=== PATIENT | male | born 1985 ===

== ENCOUNTER 2018-02-18 14:30 | Emergency (ER) | payer BC ==
[2017-07-08 09:27] VITALS: Wt 90.7 kg
[~2018-02-18 14:30] MED LIST: ALBU8.5H IH; AZIT-17 PO; CEF300 PO; CEP500 PO; DOCU-416 PO; HYDR-317 PO; HYDR-6016 PO; IBUP600T22 PO; LEVO-85 PO; LEVO750T27 PO; NAPR500T75 PO; NO MEDS; OXYB10TA16 PO; OXYC-373 PO; OXYC-869 PO; PHEN200T32 PO; SENN-187 PO; TAMS0.4C25 PO; TRA50 PO; TRAM-627 PO
--- NOTE | 2018-02-18 14:34 | ER Report ---
History and Physical Time Seen By MD: 14:34 HPI/ROS CHIEF COMPLAINT: I feel sick HISTORY OF PRESENT ILLNESS: PT states yesterday started with chills, fever, headache, cough, diffuse bodyaches, nausea and vomiting. Took Nyquil. Pt this am vomited multiple times. went to pcp and was sent to ed for tachycardia and further evaluation of symptoms. Pt denies diarrhea. no cp or abd pain. no sick contacts or recent travel REVIEW OF SYSTEMS: Constitutional: + fever, + chills. Eyes: No discharge. ENT: No sore throat. Cardiovascular: No chest pain, no palpitations. Respiratory: + cough, no shortness of breath. Gastrointestinal: No abdominal pain, +nausea, + vomiting. Genitourinary: No hematuria. Musculoskeletal: No back pain, + diffuse bodyaches Skin: No rashes. Neurological: + headache. Allergies: Coded Allergies: No Known Drug Allergies (Verified , 02/18/18) Home Meds No Active Prescriptions or Reported Meds Past Medical/Surgical History Pmhx: Kidney stones Pshx: cysto Reviewed Nurses Notes: Yes Hx Smoking: No Smoking Status: Former Smoker, Heavy Tobacco Smoker Hx Substance Use Disorder: No Hx Alcohol Use: No Constitutional Vital Sign - Last 24 Hours 02/18/18 02/18/18 02/18/18 02/18/18 14:30 14:33 14:45 15:00 Temp 98.8 Pulse 105 102 101 Resp 16 B/P (MAP) 117/86 117/86 (96) 131/89 (103) Pulse Ox 94 94 94 O2 Delivery Room Air Physical Exam General Appearance: The patient is alert, has no immediate need for airway protection and no signs of toxicity. Eyes: Pupils equal and round no pallor or injection, EOMI ENT: no pharyngeal erythema or exudates, Mucous membranes are moist, TM are nl b/l Respiratory: There are no retractions, lungs are clear to auscultation. Cardiovascular: tachycardic, pulses are equal and symmetrical Gastrointestinal: Abdomen is soft and non tender, no masses, bowel sounds normal, no guarding, no rigidity or rebound Neurological: Cranial nerves II-XII grossly intact, no sensory or motor loss Skin: Warm and dry, no rashes. Musculoskeletal: Neck is supple non tender, no vertebral tenderness Extremities are nontender, non swollen and have full range of motion. DIFFERENTIAL DIAGNOSIS: After history and physical exam differential diagnosis was considered for dehdyration, electrolyte abnl, pneumonia, ua, viral syndrome , influenza, gastroenteritis Medical Decision Making Data Points Result Diagram: 02/18/18 1447 02/18/18 1447 Laboratory Hematology Test 02/18/18 14:12 02/18/18 14:44 02/18/18 14:47 Urine Color Dodie Urine Clarity Slightly-cloudy Urine pH 5.0 pH (4.8-9.5) Urine Specific [place] 1.045 Urine Protein 30 mg/dL (NEGATIVE) Urine Glucose (UA) Negative mg/dL (NEGATIVE) Urine Ketones Negative mg/dL (NEGATIVE) Urine Blood Negative (NEGATIVE) Urine Nitrite Negative (NEGATIVE) Urine Bilirubin Small (NEGATIVE) Urine Urobilinogen 4.0 mg/dL (0.2-1.9) Urine Leukocyte Esterase Negative (NEGATIVE) Urine RBC 10 /HPF (0-2/HPF) Urine WBC 3 /HPF (0-5/HPF) Urine Squamous Epithelial Cells Moderate /LPF (</=FEW) Urine Transitional Epithelial Cells Many /LPF (NONE-FEW) Urine Bacteria Few /HPF (NONE-FEW) Urine Hyaline Casts Few /LPF (NONE-FEW) Urine Mucus Few /HPF (NONE-FEW) Influenza Virus Type A (PCR) Negative (NEGATIVE) Influenza Virus Type B (PCR) Negative (NEGATIVE) Red Blood Count 5.41 M/uL (4.00-5.60) Mean Corpuscular Volume 87.0 fL (80.0-96.0) Mean Corpuscular Hemoglobin 29.9 pg (26.0-33.0) Mean Corpuscular Hemoglobin Concent 34.4 g/dL (32.0-36.0) Red Cell Distribution Width 13.8 % (11.5-14.5) Mean Platelet Volume 8.3 fL (7.2-11.1) Neutrophils (%) (Auto) 84.2 % (39.4-72.5) Lymphocytes (%) (Auto) 7.6 % (17.6-49.6) Monocytes (%) (Auto) 7.9 % (4.1-12.4) Eosinophils (%) (Auto) 0.0 % (0.4-6.7) Basophils (%) (Auto) 0.3 % (0.3-1.4) Nucleated RBC Relative Count (auto) 0.0 /100WBC Neutrophils # (Auto) 12.7 K/uL (2.0-7.4) Lymphocytes # (Auto) 1.1 K/uL (1.3-3.6) Monocytes # (Auto) 1.2 K/uL (0.3-1.0) Eosinophils # (Auto) 0.0 K/uL (0.0-0.5) Basophils # (Auto) 0.0 K/uL (0.0-0.1) Nucleated RBC Absolute Count (auto) 0.01 K/uL Sodium Level 141 mmol/L (137-145) Potassium Level 3.8 mmol/L (3.5-5.0) Chloride Level 102 mmol/L (98-107) Carbon Dioxide Level 23 mmol/L (22-30) Blood Urea Nitrogen 17 mg/dl (9-21) Creatinine 1.20 mg/dl (0.66-1.25) Glomerular Filtration Rate Calc > 60.0 Random Glucose 115 mg/dl (75-110) Calcium Level 9.6 mg/dl (8.4-10.2) Total Bilirubin 0.6 mg/dl (0.2-1.3) Aspartate Amino Transf (AST/SGOT) 32 U/L (0-35) Alanine Aminotransferase (ALT/SGPT) 39 U/L (0-56) Alkaline Phosphatase 82 U/L (0-126) Total Protein 8.3 gm/dl (6.3-8.2) Albumin 4.5 g/dl (3.5-5.0) Chemistry Test 02/18/18 14:12 02/18/18 14:44 02/18/18 14:47 Urine Color Dodie Urine Clarity Slightly-cloudy Urine pH 5.0 pH (4.8-9.5) Urine Specific [place] 1.045 Urine Protein 30 mg/dL (NEGATIVE) Urine Glucose (UA) Negative mg/dL (NEGATIVE) Urine Ketones Negative mg/dL (NEGATIVE) Urine Blood Negative (NEGATIVE) Urine Nitrite Negative (NEGATIVE) Urine Bilirubin Small (NEGATIVE) Urine Urobilinogen 4.0 mg/dL (0.2-1.9) Urine Leukocyte Esterase Negative (NEGATIVE) Urine RBC 10 /HPF (0-2/HPF) Urine WBC 3 /HPF (0-5/HPF) Urine Squamous Epithelial Cells Moderate /LPF (</=FEW) Urine Transitional Epithelial Cells Many /LPF (NONE-FEW) Urine Bacteria Few /HPF (NONE-FEW) Urine Hyaline Casts Few /LPF (NONE-FEW) Urine Mucus Few /HPF (NONE-FEW) Influenza Virus Type A (PCR) Negative (NEGATIVE) Influenza Virus Type B (PCR) Negative (NEGATIVE) White Blood Count 15.1 k/uL (4.5-11.0) Red Blood Count 5.41 M/uL (4.00-5.60) Hemoglobin 16.2 g/dL (14.0-18.0) Hematocrit 47.1 % (42.0-52.0) Mean Corpuscular Volume 87.0 fL (80.0-96.0) Mean Corpuscular Hemoglobin 29.9 pg (26.0-33.0) Mean Corpuscular Hemoglobin Concent 34.4 g/dL (32.0-36.0) Red Cell Distribution Width 13.8 % (11.5-14.5) Platelet Count 209 K/uL (150-450) Mean Platelet Volume 8.3 fL (7.2-11.1) Neutrophils (%) (Auto) 84.2 % (39.4-72.5) Lymphocytes (%) (Auto) 7.6 % (17.6-49.6) Monocytes (%) (Auto) 7.9 % (4.1-12.4) Eosinophils (%) (Auto) 0.0 % (0.4-6.7) Basophils (%) (Auto) 0.3 % (0.3-1.4) Nucleated RBC Relative Count (auto) 0.0 /100WBC Neutrophils # (Auto) 12.7 K/uL (2.0-7.4) Lymphocytes # (Auto) 1.1 K/uL (1.3-3.6) Monocytes # (Auto) 1.2 K/uL (0.3-1.0) Eosinophils # (Auto) 0.0 K/uL (0.0-0.5) Basophils # (Auto) 0.0 K/uL (0.0-0.1) Nucleated RBC Absolute Count (auto) 0.01 K/uL Glomerular Filtration Rate Calc > 60.0 Calcium Level 9.6 mg/dl (8.4-10.2) Total Bilirubin 0.6 mg/dl (0.2-1.3) Aspartate Amino Transf (AST/SGOT) 32 U/L (0-35) Alanine Aminotransferase (ALT/SGPT) 39 U/L (0-56) Alkaline Phosphatase 82 U/L (0-126) Total Protein 8.3 gm/dl (6.3-8.2) Albumin 4.5 g/dl (3.5-5.0) Urinalysis Test 02/18/18 14:12 Urine Color Dodie Urine Clarity Slightly-cloudy Urine pH 5.0 pH (4.8-9.5) Urine Specific [place] 1.045 Urine Protein 30 mg/dL (NEGATIVE) Urine Glucose (UA) Negative mg/dL (NEGATIVE) Urine Ketones Negative mg/dL (NEGATIVE) Urine Blood Negative (NEGATIVE) Urine Nitrite Negative (NEGATIVE) Urine Bilirubin Small (NEGATIVE) Urine Urobilinogen 4.0 mg/dL (0.2-1.9) Urine Leukocyte Esterase Negative (NEGATIVE) Urine RBC 10 /HPF (0-2/HPF) Urine WBC 3 /HPF (0-5/HPF) Urine Squamous Epithelial Cells Moderate /LPF (</=FEW) Urine Transitional Epithelial Cells Many /LPF (NONE-FEW) Urine Bacteria Few /HPF (NONE-FEW) Urine Hyaline Casts Few /LPF (NONE-FEW) Urine Mucus Few /HPF (NONE-FEW) EKG/Imaging Imaging napd ED Course/Re-evaluation Clinical Indication for ER IV: Hydration, IV Access ED Course fluids and check labs 02/18/2018 3:53:15 pm Pt feeling better after fluids. Labs do not show a clear cause of pts symptoms. Will d/c home with antiemetic. Pt is to follow up with pcp. If symptoms worsen prior to seeing pcp then to return to ed. no work until fever free 24 hours. Decision to Disposition Date: February 18, 2018 Decision to Disposition Time: 15:55 Depart Departure Latest Vital Signs Vital Signs Date Time Temp Pulse Resp B/P (MAP) Pulse Ox O2 Delivery O2 Flow Rate FiO2 02/18/18 15:00 101 131/89 (103) 94 02/18/18 14:30 98.8 16 Room Air Impression: Primary Impression: Viral syndrome Additional Impression: Nausea & vomiting Condition: Improved Disposition: HOME OR SELF-CARE Referrals: [facility]IN-R[facility] [employer] [facility] (PCP) 2 Days New Scripts Ondansetron (ZOFRAN ODT) 4 Mg Tab.rapdis 4 MG PO Q6-8H Y for NAUSEA/VOMITING, #15 TAB.MELVI Prov: ALCON CHINCHILLA DO 02/18/18 Departure Forms: ER Transition Record, Medications Reconciliation, Off Work/ School Form, School or Work Release?: Work Number of days to be released: 2 Patient Portal Information Patient Instructions: Viral Syndrome (GEN) Additional Instructions: Motrin (advil, ibuprofen) 600mg every 6 hours as needed for pain Tylenol 650mg every 4 hours as needed for pain. zofran one every 6 hours as needed for nausea or vomiting . Follow up with your family doctor. Return if symptoms worsen prior to seeing your doctor. Problem Qualifiers Additional Impression: Nausea & vomiting Vomiting type: unspecified Vomiting Intractability: non-intractable Qualified Codes: R11.2 - Nausea with vomiting, unspecified ALCON CHINCHILLA DO February 18, 2018 14:34
[2018-02-18] MEDS ORDERED: ONDANSETRON 4 MG/2 ML VIAL IVP ONE (14:40)
[2018-02-18] MEDS ORDERED: NS(*) 0.9% 1000 ML BAG 1,000 ML IV ONE (14:40)
[2018-02-18] MEDS ORDERED: KETOROLAC 30 MG/ML VIAL IVP ONE (14:40)
[2018-02-18 15:07] LABS: PLATELET COUNT, AUTOMATED 209 K/uL (150-450)
--- NOTE | 2018-02-18 15:38 | RADIOLOGY IMAGING REPORT ---
FACILITY: [facility] - [place] PATIENT NAME: Shahid Fletcher : 1985 MR: [id number] V: [id number] EXAM DATE: ORDERING PHYSICIAN: ALCON CHINCHILLA TECHNOLOGIST: Location: [facility] Patient: Shahid Fletcher : 1985 Visit/Account:[id number] Date of Sevice: 02/18/2018 Exam type: CHEST PA AND LAT History: cough, fever Comparison: August 19, 2017. Findings: The lungs are free of acute effusions, infiltrates or edema. Cardiac silhouette is normal in size. Trachea is in midline. There is no evidence of a pneumothorax or pneumomediastinum. IMPRESSION: 1. No acute cardiopulmonary process is seen Report Dictated By: Faye Holbrook MD at 02/18/2018 3:33 PM Report E-Signed By: Faye Holbrook MD at 02/18/2018 3:34 PM WSN:[id number]
[2018-02-18] MEDS ORDERED: ONDA4TAB PO (15:56)
[2018-02-18 16:00] VITALS: BP 128/85
== END 2018-02-18 16:05 | disposition home or self-care (01) ==
LOC: ER 14:36
DX: B34.9 Viral infection, unspecified (principal); R11.2 Nausea with vomiting, unspecified
CPT/HCPCS: 71046; 81001; 85025; 87502; 96361; 96374; 99284; J1885; J7030; 82040; 82247; 82310; 82374; 82435; 82565; 82947; 84075; 84132; 84155; 84295; 84450; 84460; 84520

== ENCOUNTER → 2018-10-23 | Outpatient (CLI) | payer BC ==
[2017-07-08 09:27] VITALS: BMI 33.1
[~2018-10-23] MED LIST changes: +ONDA4TAB PO
--- NOTE | 2018-10-23 08:38 | RADIOLOGY IMAGING REPORT ---
FACILITY: [facility] - [place], [place] PATIENT NAME: Shahid Fletcher : 1985 MR: [id number] V: [id number] EXAM DATE: ORDERING PHYSICIAN: CARMENCITA CUNNINGHAM TECHNOLOGIST: Location: [facility] [place] Patient: Shahid Fletcher : 1985 Visit/Account:[id number] Date of Sevice: 10/23/2018 CT CHEST W/O CONTRAST History: Lung nodule TECHNIQUE: Contiguous axial images were performed through the chest to the level of the adrenal gla nds. No IV contrast was administered. Coronal and sagittal reformatting was also performed.Dose Lower ing Technique One of the following dose optimization techniques was utilized in the performance of this exam: Autom ated exposure control; adjustment of the mA and/or kV according to the patient's size; or use of an i terative reconstruction technique. Specific details can be referenced in the facility's radiology C T exam operational policy. COMPARISON STUDIES: CTA chest July 13, 2017. Lungs / Pleura: Previously noted 4 mm nodule in the anterior right middle lobe appears unchanged an d is best seen on image 57 of series 3. There is a 2 mm intrafissural nodule in the minor fissure on the right best seen on image 41. There is a 3 mm noncalcified nodule anterolateral aspect left lower lobe best seen on image 64.. There Is a 3 mm subpleural nodule posterior aspect of the left lower lobe best seen on image 67 No evidence of pleural effusions Mediastinum/nodes: negative. Heart and vessels: negative. Musculoskeletal / Body wall: No aggressive appearing bone lesions Upper abdomen: Visualized abdominal viscera negative. IMPRESSION: Previous noted 4 mm nodule anterior aspect right middle lobe appears unchanged. There are several ot her small up to 3 mm pulmonary nodules which may been obscured by the previous inflammatory process [employer] SOC[employer] FOLLOW-UP GUIDELINES FOR NEWLY DETECTED INCIDENTAL NODULES IN PERSONS 35 YEARS OF AGE OR OLDER. *These recommendations do NOT apply to lung cancer screening, patients with immunosuppression or saúl ents with a known primary malignancy. MULTIPLE SOLID NODULES If nodule size is < 6 mm: * Low risk patient ? No routine follow-up. * High risk patient ? Optional CT at 12 months. If nodule size is 6-8 mm: * Low risk patient ? CT at 3-6 months, then consider CT at 18-24 months if no change. * High risk patient ? CT at 3-6 months, then CT at 18-24 months if no change. If nodule size is > 8 mm: * Low risk patient ? CT at 3-6 months, then consider CT at 18-24 months if no change. * High risk patient ? CT at 3-6 months, then consider CT at 18-24 months if no change. LOW RISK PATIENT: Minimal or absent history of tobacco use and of other known risk factors. HIGH RISK PATIENT: Tobacco use, family history of lung cancer, upper pulmonary lobe location of nodul e, presence of emphysema, pulmonary fibrosis, older age. Dimplehoabdi H, Rojas DP, Guruo JM, et al. Guidelines for Management of Incidental Pulmonary Nodules Dete cted on CT Images: From the Fleischner Society 2017. Radiology. [facility] Report Dictated By: Faye Holbrook MD at 10/23/2018 8:26 AM Report E-Signed By: Faye Holbrook MD at 10/23/2018 8:32 AM SHAHIDN:MARGO
== END ==
LOC: CT 00:23
PROVIDERS: ATTEND Nurse Practitioner Family
DX: R91.1 Solitary pulmonary nodule (principal)
CPT/HCPCS: 71250